=== PATIENT | male | born 1955 | race Caucasian/White ===

== ENCOUNTER 2022-12-14 07:05 | Outpatient (CLI) | payer BC, SELFPAY ==
--- NOTE | 2022-12-14 07:13 | CT_ITS ---
WS: [id number] CT CHEST TECHNIQUE: Noncontrast CT of the chest with coronal and sagittal reformatted images. CLINICAL INFORMATION: LEFT LUNG MASS COMPARISON: None. DLP: 718.[address] scans at [facility] use at least one of these dose optimization techniques: automated e xposure control; mA and/or kV adjustment per patient size (includes targeted exams where dose is matc hed to clinical indication); or iterative reconstruction. FINDINGS: Low-attenuation RIGHT thyroid nodule measuring 2.7 x 2.4 cm. Aortic calcification. Coronary calcifica tion. Tiny esophageal canal hernia. No mediastinal or hilar lymphadenopathy. No axillary lymphadenopa thy. Adrenal glands are normal. RIGHT upper pole renal cyst measuring 5.2 x 6.6 cm. Moderate thoracic kyphosis. Anterior hypertrophic changes thoracic spine. Small incidental LEFT fat-containing diaphra gmatic hernia compatible with Bochdalek hernia. IMPRESSION: 1. Lungs are well aerated. No acute pulmonary infiltrates. No focal pneumonia or pleural fluid. 2. No suspicious pulmonary opacities. 3. No mediastinal or hilar lymphadenopathy. 4. Small incidental fat-containing LEFT Bochdalek hernia 5. Low-attenuation RIGHT thyroid nodule measuring 2.7 x 2.4 cm. This can be further evaluated with u ltrasound.
== END 2022-12-14 07:06 | disposition home or self-care (01) ==
PROVIDERS: PCP Family Medicine; Visit Provider Family Medicine
DX: R91.8 Other nonspecific abnormal finding of lung field (principal)
CPT/HCPCS: 71250

== ENCOUNTER 2023-12-05 09:14 | Day surgery (SDC) | payer BC, SELFPAY ==
[2023-12-05 09:34] VITALS: BP 178/104; PULSE 76; RESP 18; TEMP 36.6; O2SAT 97; BMI 34.8
[2023-12-05] MEDS: sodium chloride 0.9% 1,000 ML 30 ML IV (09:42)
[2023-12-05 09:47] LABS: Glucose Point of Care 196 mg/dL (70-110)
--- NOTE | 2023-12-05 09:48 | P.ANESASSM_ITS ---
Pre-Anesthetic Assessment Height/Weight: Height 1.85 m Weight 119.748 kg Temp Pulse Resp BP Pulse Ox O2 Del Method 97.9 F 76 18 178/104 97 Room Air 12/05/23 09:34 12/05/23 09:34 12/05/23 09:34 12/05/23 09:34 12/05/23 09:34 12/05/23 09:34 Operation Date: 12/05/23 10:20 Proposed Procedures p Colonoscopy 58817, G0105, R19.8, R10.9, R14(Not Applicable) - Trevor Darby DO Familial anesthetic complications: none Was Beta Ewa taken within 24 hours: N/A Was Clonidine taken within 24 hours: N/A Last intake: Intake Last Liquid Date 12/04/23 Last Liquid Time 20:00 Last Solid Date 12/03/23 Last Solid Time 10:00 Social Tobacco and No alcohol (5 cigs/day) Exam alert and oriented x 3 Airway Submandibular: within normal limits Cervical ROM: within normal limits Mallampati: Class I Dentition: chipped and full History/ROS No significant history except as noted Pulmonary Chronic Obstructive Pulmonary Disease CV/HEM Hypertension None reported Hepatic None reported Metabolic Diabetes Mellitus and Morbid Obesity [facility] Osteoarthritis/DJD (knee) Neuropsych None reported Anesthetic Plan ASA status: 3 Anesthesia: Anesthesia Evaluation, General and MAC Medications/Allergies Home Medications Medication Instructions Recorded Confirmed Last Taken Type glipizide 10 mg tablet 10 mg PO BID 10/01/23 12/03/23 12/04/23 History insulin glargine-yfgn 100 unit/mL 20 unit SUBCUT DAILY 10/01/23 12/03/23 12/04/23 History (3 mL) subcutaneous pen (Semglee (insulin glargine-yfgn) Pen) lisinopril 10 mg tablet 10 mg PO DAILY 10/01/23 12/03/23 12/04/23 History pen needle, diabetic 31 gauge x #1,200 ea 10/01/23 10/01/23 Unknown History 08/22 (BD Ultra-Fine Short Pen Needle) sitagliptin phos 100 mg-metformin 1 tab PO DAILY 10/01/23 12/03/23 12/04/23 History ER 1,000 mg tablet,extend rel 24h mp (Janumet XR) cholecalciferol (vitamin D3) 125 125 mcg PO DAILY 12/05/23 12/05/23 12/03/23 Hi story mcg (5,000 unit) tablet (Vitamin D3) vitamin B complex 1 tab PO DAILY 12/05/23 12/05/23 12/03/23 History Allergies Allergy/AdvReac Type Severity Reaction Status Date / Time Penicillins Allergy ALGY-Rash Verified 10/01/23 09:16 Current Medications Generic Name Dose Route Start Last Admin Trade Name Freq PRN Reason Stop Dose Admin Sodium Chloride 1,000 mls @ 30 mls/hr 12/05/23 09:30 12/05/23 09:42 Sodium Chloride 0.9% IV 12/06/23 09:29 30 mls/hr .Q24H NI Administration PFSH Anesthesia Social History Smoking and tobacco/nicotine status: current every day tobacco/nicotine user cigarettes Packs smoked per day: 1 Years cigarettes smoked: 50 Alcohol intake: current Alcohol intake frequency: holidays/special occasions only Alcohol type: beer Substance/Drug Use: never Data Anesthesia Cardiac Studies: No Data to Display
--- NOTE | 2023-12-05 11:35 | PM.HP ---
Providers/Chief Complaint Primary Care Provider: Anurag Marcos Chief Complaint: R19.8, R10.9, R14 History of Present Illness Cortes Soriano is a 68 year old male Medications/Allergies Home Medications Medication Instructions Recorded Confirmed Last Taken Type glipizide 10 mg tablet 10 mg PO BID 10/01/23 12/03/23 12/04/23 History insulin glargine-yfgn 100 unit/mL 20 unit SUBCUT DAILY 10/01/23 12/03/23 12/04/23 History (3 mL) subcutaneous pen (Semglee (insulin glargine-yfgn) Pen) lisinopril 10 mg tablet 10 mg PO DAILY 10/01/23 12/03/23 12/04/23 History pen needle, diabetic 31 gauge x #1,200 ea 10/01/23 10/01/23 Unknown History 08/22 (BD Ultra-Fine Short Pen Needle) sitagliptin phos 100 mg-metformin 1 tab PO DAILY 10/01/23 12/03/23 12/04/23 History ER 1,000 mg tablet,extend rel 24h mp (Janumet XR) cholecalciferol (vitamin D3) 125 125 mcg PO DAILY 12/05/23 12/05/23 12/03/23 History mcg (5,000 unit) tablet (Vitamin D3) vitamin B complex 1 tab PO DAILY 12/05/23 12/05/23 12/03/23 History Allergies Allergy/AdvReac Type Severity Reaction Status Date / Time Penicillins Allergy ALGY-Rash Verified 10/01/23 09:16 PFSH Acute PFSH: Social History Smoking and tobacco/nicotine status: current every day tobacco/nicotine user cigarettes Packs smoked per day: 1 Years cigarettes smoked: 50 Alcohol intake: current Alcohol intake frequency: holidays/special occasions only Alcohol type: beer Substance/Drug Use: never Vitals/I&O/Wt Last Vital Signs Temp 97.9 F 12/05/23 09:34 Pulse 76 12/05/23 09:34 Resp 18 12/05/23 09:34 BP 178/104 12/05/23 09:34 Pulse Ox 97 12/05/23 09:34 O2 Del Method Room Air 12/05/23 09:34 Weight last 48 hrs Weight 264 lb A&P Assessment and plan (1) Alternating constipation and diarrhea: (2) Abdominal pain: Plan Diagnostic colonoscopy with random biopsies Attestations Medical Necessity Statement*: Home Coding Level of Care Code Acute Code for Chg Fwd Diagnoses Alternating constipation and diarrhea R19.8 Abdominal pain R10.9
[2023-12-05 12:12] VITALS: BP 140/81; PULSE 73; RESP 16; TEMP 36.1; O2SAT 97
[2023-12-05 12:23] VITALS: BP 154/85; PULSE 71; RESP 18; O2SAT 98
--- NOTE | 2023-12-05 12:40 | ANE.PACU2 ---
Inpatient post-anesthesia follow up: Airway intact: Yes Vital signs: Temperature 97 F Pulse Rate 71 Respiratory Rate 18 Blood Pressure 154/85 Pulse Oximetry 98 Oxygen Delivery Me thod Room Air Oxygen Flow Rate Fraction of Inspir ed Oxygen Hydration adequate: Yes Nausea and vomiting: No Pain level: 1 Mental status: Baseline
[2023-12-05 14:43] LABS: C.Diff PCR (Lab) NEGATIVE (Negative)
== END 2023-12-05 12:45 | disposition home or self-care (01) ==
PROVIDERS: PCP Family Medicine; Visit Provider Surgery
PROC: 0DJD8ZZ Inspection of Lower Intestinal Tract, Via Natural or Artificial Opening Endoscopic (ICD-10-PCS; CPT 45378; principal; 2023-12-05 10:20)
DX: K59.00 Constipation, unspecified (principal); R19.7 Diarrhea, unspecified; D12.8 Benign neoplasm of rectum; K57.30 Diverticulosis of large intestine without perforation or abscess without bleeding; F17.210 Nicotine dependence, cigarettes, uncomplicated; J44.9 Chronic obstructive pulmonary disease, unspecified; I10 Essential (primary) hypertension; E11.9 Type 2 diabetes mellitus without complications; Z79.4 Long term (current) use of insulin; E66.01 Morbid (severe) obesity due to excess calories; Z68.34 Body mass index [BMI] 34.0-34.9, adult
CPT/HCPCS: 36416; 45380; 45385; 82274; 82962; 83630; 87045; 87177; 87209; 87427; 87449; 87493; 88305; J2704; J7030